=== PATIENT | female | born 1970 | race Caucasian/White ===

== ENCOUNTER 2019-03-24 15:28 | Emergency (ER) | payer BC ==
[~2019-03-24] VITALS: Ht 162.6 cm; Wt 150.0 kg
[2019-03-24] MEDS ORDERED: NORCO2.5 PO (17:15)
[2019-03-24 17:55] VITALS: BP 157/67; PULSE 65; TEMP 98.1
== END 2019-03-24 17:58 | disposition home or self-care (01) ==
LOC: COL.ER 15:28
DX: S83.91XA Sprain of unspecified site of right knee, initial encounter (principal); Z90.89 Acquired absence of other organs; X50.1XXA Overexertion from prolonged static or awkward postures, initial encounter

== ENCOUNTER → 2019-10-29 | Outpatient (CLI) | payer BC ==
[~2019-10-29] MED LIST: NORCO2.5 PO
== END ==
LOC: COL.RAD 12:10
DX: Z01.818 Encounter for other preprocedural examination (principal)

== ENCOUNTER 2021-06-15 13:52 | Outpatient (RCR) | END 2021-07-08 | disposition home or self-care (01) | LOC: WSOH | DX: S46.811D Strain of other muscles, fascia and tendons at shoulder and upper arm level, right arm, subsequent encounter (principal); I10 Essential (primary) hypertension; E78.00 Pure hypercholesterolemia, unspecified; F41.8 Other specified anxiety disorders; Z90.49 Acquired absence of other specified parts of digestive tract; Z90.89 Acquired absence of other organs; Z98.890 Other specified postprocedural states; Y99.0 Civilian activity done for income or pay ==

== ENCOUNTER 2021-08-14 09:48 | Outpatient (RCR) | payer OTHER | END 2021-09-07 | disposition home or self-care (01) | LOC: WSOH | DX: S46.811D Strain of other muscles, fascia and tendons at shoulder and upper arm level, right arm, subsequent encounter (principal); Y99.0 Civilian activity done for income or pay; I10 Essential (primary) hypertension; E11.9 Type 2 diabetes mellitus without complications; M19.90 Unspecified osteoarthritis, unspecified site; F41.8 Other specified anxiety disorders; Z90.49 Acquired absence of other specified parts of digestive tract; Z90.89 Acquired absence of other organs; Z98.890 Other specified postprocedural states ==

== ENCOUNTER 2021-09-22 09:51 | Outpatient (RCR) | payer OTHER | END 2021-10-08 | disposition home or self-care (01) | LOC: WSOH | DX: S46.811D Strain of other muscles, fascia and tendons at shoulder and upper arm level, right arm, subsequent encounter (principal); Y99.0 Civilian activity done for income or pay; I10 Essential (primary) hypertension; E78.00 Pure hypercholesterolemia, unspecified; F41.8 Other specified anxiety disorders; E11.9 Type 2 diabetes mellitus without complications; G47.00 Insomnia, unspecified; M19.90 Unspecified osteoarthritis, unspecified site; Z90.49 Acquired absence of other specified parts of digestive tract; Z90.89 Acquired absence of other organs; Z98.890 Other specified postprocedural states ==

== ENCOUNTER 2021-11-01 09:15 | Outpatient (RCR) | payer OTHER | END 2021-11-08 | disposition home or self-care (01) | LOC: WSOH | DX: S46.811D Strain of other muscles, fascia and tendons at shoulder and upper arm level, right arm, subsequent encounter (principal); S46.201D Unspecified injury of muscle, fascia and tendon of other parts of biceps, right arm, subsequent encounter; F41.8 Other specified anxiety disorders; I10 Essential (primary) hypertension; E78.00 Pure hypercholesterolemia, unspecified; E11.9 Type 2 diabetes mellitus without complications; M19.90 Unspecified osteoarthritis, unspecified site; Y99.0 Civilian activity done for income or pay ==